=== PATIENT | male | born 2000 | race Caucasian/White ===

== ENCOUNTER 2020-03-03 14:23 | Emergency (ER) | payer OTHER ==
[~2020-03-03] VITALS: Ht 168.9 cm; Wt 90.7 kg
[2020-03-03 14:27] VITALS: BP 145/73
--- NOTE | 2020-03-03 14:30 | NUR ---
19 YO MALE CO RIGHT ANKLE PAIN SINCE LAST NIGHT. RIGHT ANKLE IS SWOLLEN WITH NO BRUISING. SKIN INTACT. PAIN IS 6/10 AT REST. NO PMH- NO RX
--- NOTE | 2020-03-03 14:39 | NUR ---
RAD AT BEDSIDE
--- NOTE | 2020-03-03 15:21 | NUR ---
APPLIED ANKLE STIRUP SPLINT TO RIGHT ANKLE
[2020-03-03 15:25] VITALS: BP 145/73
--- NOTE | 2020-03-03 15:27 | NUR ---
Patient discharged with v/s stable. Written and verbal after care instructions given and explained. Patient verbalized understanding. Ambulatory with steady gait. All questions addressed prior to discharge. Advised to follow up with PMD.
== END 2020-03-03 15:27 | disposition home or self-care (01) ==
LOC: MED 14:23
DX: M25.571 Pain in right ankle and joints of right foot (principal)
CPT/HCPCS: 29515; 73610; 99283; Q0092

== ENCOUNTER 2023-08-02 20:24 | Emergency (ER) | payer MEDICAID ==
[~2023-08-02] VITALS: Ht 175.3 cm; Wt 100.2 kg
[2023-08-02 20:38] VITALS: BP 121/79; PULSE 90; RESP 17; TEMP 98.3; O2SAT 96
[2023-08-02] MEDS: HYDROcodone/APAP 5/325 MG 1 TAB TAB PO ONE (22:11)
[2023-08-02] MEDS ORDERED: IBUP-2213 PO (22:21)
[2023-08-02 22:44] VITALS: BP 122/64; PULSE 70; RESP 18; TEMP 98.3; O2SAT 99
== END 2023-08-02 22:44 | disposition home or self-care (01) ==
LOC: MED 20:24
DX: S43.121A Dislocation of right acromioclavicular joint, 100%-200% displacement, initial encounter (principal); Z79.899 Other long term (current) drug therapy; W18.30XA Fall on same level, unspecified, initial encounter; Y93.51 Activity, roller skating (inline) and skateboarding; Y92.89 Other specified places as the place of occurrence of the external cause; Y99.8 Other external cause status
CPT/HCPCS: 73030; 99283